=== PATIENT | male | born 1955 | race African-American/Black ===

== ENCOUNTER 2018-09-17 10:14 | Inpatient (IN) | payer MEDICAID, OTHER ==
[~2018-09-17] VITALS: Ht 170.2 cm; Wt 68.0 kg
[2018-09-17 11:49] LABS: BASOPHILS % 0.3 % (0.0-2.0); EOSINOPHILS % 0.3 % (0.0-5.0); HEMATOCRIT. 44.9 % (42.0-52.0); HEMOGLOBIN. 15.2 g/dL (14.0-18.0); LYMPHOCYTES % 10.6 % (20.0-50.0); MEAN CORPUSCULAR HEMOGLOBIN 31.7 pg (28.0-32.0); MEAN CORPUSCULAR VOLUME 93.8 fL (80.0-94.0); MEAN PLATELET VOLUME 9.7 fl (7.4-10.4); MONOCYTES % 8.8 % (2.0-8.0); PLATELET 225 x1000/uL (130-400); RED BLOOD CELL COUNT 4.78 mill/uL (4.7-6.1); RED CELL DISTRIBUTION WIDTH 15.6 % (11.6-14.6)
[2018-09-17 11:54] LABS: CHLORIDE 107 mEq/L (98-107)
[2018-09-17 12:00] LABS: ETHANOL BLOOD 10 mg/dL
[2018-09-17] MEDS ORDERED: DEXTROSE 50% WATER 50ML SYRINGE IV ONE (12:15)
[2018-09-17] MEDS ORDERED: SODIUM BICARBONATE 8.4% 1 MEQ/ML 50ML SYR IV ONE (12:15)
[2018-09-17] MEDS ORDERED: CALCIUM CHLORIDE 1GM/10ML SYR IV ONE (12:15)
[2018-09-17] MEDS ORDERED: INSULIN REGULAR (HUMULIN R) 300UNITS/3ML IV ONE (12:15)
[2018-09-17] MEDS ORDERED: SODIUM POLYSTYRENE SULFONATE 15 G/60 ML BOT PO ONE (12:15)
[2018-09-17 13:41] LABS: PARTIAL THROMBOPLASTIN TIME 34.5 sec (23.4-31.0); PROTHROMBIN TIME 10.4 sec (9.1-11.1)
[2018-09-17] MEDS ORDERED: IPRATROPIUM/ALBUTEROL 0.5-3(2.5)MG/3ML NEB INH PRN (13:45)
[2018-09-17] MEDS ORDERED: MAGNESIUM/ALUMINUM HYDROXIDE/SIMETHICONE 30ML UDC PO PRN (13:45)
[2018-09-17] MEDS ORDERED: LORAZEPAM 2MG/ML CPJ IV PRN (13:45)
[2018-09-17] MEDS ORDERED: NA PHOS,M-B/NA PHOS,DI-BA ENEMA 118ML PR PRN (13:45)
[2018-09-17] MEDS ORDERED: ACETAMINOPHEN 325MG TABLET PO PRN (13:45)
[2018-09-17] MEDS ORDERED: ONDANSETRON HCL 4MG/2ML INJ IV PRN (13:45)
[2018-09-17] MEDS ORDERED: GUAIFENESIN 200MG/10ML SUGAR FREE UDC PO PRN (13:45)
[2018-09-17] MEDS ORDERED: DIPHENHYDRAMINE 50MG/ML VIAL IV PRN (13:45)
[2018-09-17] MEDS: SODIUM CHLORIDE 0.45% 1,000 ML IV SCH (14:17)
[2018-09-17 15:32] LABS: CHLORIDE 107 mEq/L (98-107)
[2018-09-17 16:13] LABS: CLARITY URINE CLEAR (CLEAR); COLOR URINE YELLOW (YELLOW); KETONES URINE TRACE (NEGATIVE); LEUKOCYTE ESTERASE URINE NEGATIVE (NEGATIVE); NITRITE URINE NEGATIVE (NEGATIVE); OCCULT BLOOD URINE NEGATIVE (NEGATIVE); PROTEIN URINE 1+ (NEGATIVE); SPECIFIC GRAVITY URINE 1.016 (1.005-1.030); UROBILINOGEN URINE 0.2 E.U./dL (0.2-1.0)
[2018-09-17 16:26] LABS: *AMPHETAMINES SCREEN URINE NEGATIVE (NEGATIVE); *BARBITURATES SCREEN URINE NEGATIVE (NEGATIVE); *BENZODIAZEPINES SCREEN URINE NEGATIVE (NEGATIVE)
[2018-09-17 16:28] LABS: *COCAINE SCREEN URINE PRESUMTIVE POSITIVE (NEGATIVE); CANNABINOID URINE SCREEN NEGATIVE (NEGATIVE); METHADONE URINE SCREEN NEGATIVE (NEGATIVE); OPIATES URINE SCREEN NEGATIVE (NEGATIVE); PHENCYCLIDINE URINE SCREEN NEGATIVE (NEGATIVE)
[2018-09-17 21:11] VITALS: BP_SYST 129; BP_DIAS 60; BP_DIAS 63
[2018-09-17] MEDS ORDERED: HYDROMORPHONE HCL/PF 2MG/ML CPJ IV PRN (21:28)
[2018-09-17 22:00] VITALS: BP 129/63
[2018-09-18] VITALS (9 sets, daily range): BP systolic 96–134; BP diastolic 47–88
[2018-09-18] MEDS: HYDROCODONE/ACETAMINOPHEN 5/325MG TABLET PO PRN (02:43)
[2018-09-18 09:13] LABS: HEMATOCRIT. 41.6 % (42.0-52.0); HEMOGLOBIN. 13.8 g/dL (14.0-18.0); MEAN CORPUSCULAR HEMOGLOBIN 30.7 pg (28.0-32.0); MEAN CORPUSCULAR VOLUME 92.7 fL (80.0-94.0); MEAN PLATELET VOLUME 9.2 fl (7.4-10.4); PLATELET 188 x1000/uL (130-400); RED BLOOD CELL COUNT 4.49 mill/uL (4.7-6.1); RED CELL DISTRIBUTION WIDTH 15.5 % (11.6-14.6)
[2018-09-18 09:28] LABS: CHLORIDE 108 mEq/L (98-107)
[2018-09-18 09:37] LABS: LDL CHOLESTEROL 74 mg/dL (5-100)
[2018-09-18 09:38] LABS: HDL CHOLESTEROL 88 mg/dL (40-59)
[2018-09-18] MEDS: ASPIRIN 81MG EC TABLET PO SCH (10:02)
[2018-09-18] MEDS: ENOXAPARIN 40MG/0.4ML SYR SUBCUT SCH (10:03)
[2018-09-18 15:06] LABS: PLATELET ESTIMATE NORMAL
[2018-09-18] MEDS: SODIUM CHLORIDE 0.45% 1,000 ML IV SCH (21:30)
[2018-09-19] VITALS (11 sets, daily range): BP systolic 87–109; BP diastolic 31–77
[2018-09-19] MEDS: HYDROCODONE/ACETAMINOPHEN 5/325MG TABLET PO PRN ×2 (04:56→13:57)
[2018-09-19 05:59] LABS: HEMATOCRIT. 40.4 % (42.0-52.0); HEMOGLOBIN. 13.6 g/dL (14.0-18.0); MEAN CORPUSCULAR HEMOGLOBIN 31.4 pg (28.0-32.0); MEAN PLATELET VOLUME 9.4 fl (7.4-10.4); PLATELET 169 x1000/uL (130-400); RED BLOOD CELL COUNT 4.34 mill/uL (4.7-6.1); RED CELL DISTRIBUTION WIDTH 15.8 % (11.6-14.6)
[2018-09-19 06:16] LABS: CHLORIDE 108 mEq/L (98-107)
[2018-09-19 08:25] LABS: PLATELET ESTIMATE NORMAL
[2018-09-19] MEDS: ENOXAPARIN 40MG/0.4ML SYR SUBCUT SCH (09:04)
[2018-09-19] MEDS: ASPIRIN 81MG EC TABLET PO SCH (09:04)
[2018-09-20] VITALS (12 sets, daily range): BP systolic 80–117; BP diastolic 52–77
[2018-09-20] MEDS: SODIUM CHLORIDE 0.45% 1,000 ML IV SCH (02:23)
[2018-09-20] MEDS: ENOXAPARIN 40MG/0.4ML SYR SUBCUT SCH (09:37)
[2018-09-20] MEDS: ASPIRIN 81MG EC TABLET PO SCH (09:38)
[2018-09-21] VITALS (12 sets, daily range): BP systolic 105–161; BP diastolic 30–93
[2018-09-21] MEDS: ASPIRIN 81MG EC TABLET PO SCH (08:50)
[2018-09-21] MEDS: ENOXAPARIN 40MG/0.4ML SYR SUBCUT SCH (08:50)
[2018-09-21] MEDS: SODIUM CHLORIDE 0.45% 1,000 ML IV SCH (21:56)
[2018-09-22] VITALS: BP 139/70
[2018-09-22 04:00] VITALS: BP_SYST 101; BP_SYST 146; BP_DIAS 107; BP_DIAS 64
[2018-09-22 08:00] VITALS: BP 145/96
[2018-09-22] MEDS: ASPIRIN 81MG EC TABLET PO SCH (08:36)
[2018-09-22] MEDS: ENOXAPARIN 40MG/0.4ML SYR SUBCUT SCH (08:37)
[2018-09-22] MEDS: DOCUSATE SODIUM 100MG CAPSULE PO PRN (08:37)
[2018-09-22 12:00] VITALS: BP 155/90
[2018-09-22 16:00] VITALS: BP_SYST 152; BP_SYST 156; BP_DIAS 82; BP_DIAS 85
[2018-09-22] MEDS: CLONIDINE 0.1MG TABLET PO PRN ×2 (16:15→16:16)
[2018-09-22] MEDS ORDERED: LORAZEPAM 2MG/ML CPJ IV PRN (16:30)
[2018-09-22 19:58] LABS: HEMATOCRIT. 36.6 % (42.0-52.0); HEMOGLOBIN. 12.3 g/dL (14.0-18.0); MEAN CORPUSCULAR HEMOGLOBIN 30.5 pg (28.0-32.0); MEAN CORPUSCULAR VOLUME 91.1 fL (80.0-94.0); MEAN PLATELET VOLUME 9.3 fl (7.4-10.4); PLATELET 146 x1000/uL (130-400); RED BLOOD CELL COUNT 4.02 mill/uL (4.7-6.1); RED CELL DISTRIBUTION WIDTH 15.6 % (11.6-14.6)
[2018-09-22 20:00] VITALS: BP 149/90
[2018-09-22 20:00] LABS: CHLORIDE 110 mEq/L (98-107)
[2018-09-22 20:47] LABS: PLATELET ESTIMATE NORMAL
[2018-09-23] VITALS (7 sets, daily range): BP systolic 145–173; BP diastolic 83–100
[2018-09-23] MEDS: SODIUM CHLORIDE 0.45% 1,000 ML IV SCH (07:15)
[2018-09-23] MEDS: ENOXAPARIN 40MG/0.4ML SYR SUBCUT SCH (08:57)
[2018-09-23] MEDS: DOCUSATE SODIUM 100MG CAPSULE PO PRN (08:57)
[2018-09-23] MEDS: ASPIRIN 81MG EC TABLET PO SCH (08:57)
[2018-09-23] MEDS: CLONIDINE 0.1MG TABLET PO PRN (16:45)
[2018-09-24] VITALS: BP 128/94
[2018-09-24 04:00] VITALS: BP 155/99
[2018-09-24 08:00] VITALS: BP 168/95
[2018-09-24] MEDS: ENOXAPARIN 40MG/0.4ML SYR SUBCUT SCH (08:09)
[2018-09-24] MEDS: ASPIRIN 81MG EC TABLET PO SCH (08:09)
[2018-09-24] MEDS: SODIUM CHLORIDE 0.45% 1,000 ML IV SCH (08:09)
[2018-09-24 09:52] VITALS: BP 116/53
== END 2018-09-24 12:25 | disposition home or self-care (01) | DRG 469 ==
LOC: ER 10:14 → 5EST 12:32 → EDBEDREQ 12:35 → EDBEDREQTM 12:35 → CANRESERV 16:16 → ENRESERV 16:16 → EDBEDREQSVC 16:42 → EDBEDREQ 16:42 → EDBEDREQTM 16:42 → ENRESERV 18:01 → 7WST 09-21 20:14
PROVIDERS: ADMIT Internal Medicine; ATTEND Internal Medicine
DX: N17.9 Acute kidney failure, unspecified (principal); G93.41 Metabolic encephalopathy; E87.5 Hyperkalemia; G62.9 Polyneuropathy, unspecified; E86.0 Dehydration; I10 Essential (primary) hypertension; R33.9 Retention of urine, unspecified; R00.1 Bradycardia, unspecified; N13.8 Other obstructive and reflux uropathy; N40.1 Benign prostatic hyperplasia with lower urinary tract symptoms; R32 Unspecified urinary incontinence; F10.20 Alcohol dependence, uncomplicated; F14.10 Cocaine abuse, uncomplicated; F17.200 Nicotine dependence, unspecified, uncomplicated
CPT/HCPCS: 36415; 71045; 76770; 80048; 80061; 80305; 83605; 83880; 84132; 84439; 84443; 84484; 93005; 96374; 96375; 99291; G0482; J1650; J1815; J2060; J3490; A4315